=== PATIENT | female | born 1940 | race Caucasian/White ===

== ENCOUNTER → 2016-08-05 | Outpatient (CLI) | payer OTHER, BC ==
--- NOTE | 2016-08-05 16:06 | MR ---
MRI of the Brain (Without Contrast) at 1506 hours Clinical Indications: Confusion, R41.0. Comparison: None. Technique: T1-weighted images were acquired axially and sagittally from the foramen magnum to the ve rtex. Axial fast inversion recovery, fast T2-weighted, and diffusion-weighted axial images were obta ined without contrast. Findings: The ventricles, cisterns, and sulci are widened consistent with mild cerebral atrophy jose cially in bilateral parietal lobes. No hydrocephalus, midline shift, herniation, or epidural/subdural hematomas. No intracranial hemorrhage or masses. Diffusion-weighted sequence demonstrates no acute i nfarct. Cerebellar tonsils are in normal position. Pituitary gland is normal in size. Normal signal f low-void in the superior sagittal sinus, basilar artery, and bilateral internal carotid arteries marilee cating patency. Paranasal sinuses and mastoid air cells are clear. Cervical spondylosis on the sagitt al T1 series with moderate central canal stenosis at C3-C4 and C4-C5 secondary to degenerative disk d isease and degenerative spondylolisthesis. Impression: 1. Mild cerebral atrophy. 2. Cervical spondylosis resulting in moderate central canal stenosis at C3-C4 and C4-C5 with mild cor d compression. 3. No acute infarct, acute hemorrhage, hydrocephalus, or mass effect.
== END ==
LOC: FIMAGING 14:26
PROVIDERS: ATTEND Psychiatry & Neurology Neurology
DX: R41.0 Disorientation, unspecified (principal)

== ENCOUNTER → 2017-07-14 | Outpatient (CLI) | payer OTHER, BC | LOC: BMCIMAGING 15:02 | PROVIDERS: ATTEND Internal Medicine | DX: Z12.31 Encounter for screening mammogram for malignant neoplasm of breast (principal) ==

== ENCOUNTER → 2017-08-05 | Outpatient (CLI) | payer OTHER, BC | LOC: BMCIMAGING 10:06 | PROVIDERS: ATTEND Family Medicine | DX: S92.354A Nondisplaced fracture of fifth metatarsal bone, right foot, initial encounter for closed fracture (principal); M20.11 Hallux valgus (acquired), right foot; M19.071 Primary osteoarthritis, right ankle and foot ==

== ENCOUNTER 2017-08-12 09:01 | Observation (INO) | payer OTHER, BC ==
--- NOTE | 2017-08-12 09:12 | CPEKG ---
Heart Rate: 70 RR Interval: 857 P-R Interval: 136 QRSD Interval: 72 QT Interval: 412 QTC Interval: 445 P Dawson: 74 QRS Dawson: -2 T Wave Dawson: 16 EKG Severity - NORMAL ECG - EKG Impression: SINUS RHYTHM Electronically Signed By: Og Landrum 12-Aug-2017 14:14:20
--- NOTE | 2017-08-12 09:23 | EDPHY ---
H & P Stated Complaint: syncope x 2 this week Time Seen by Provider: 08/12/17 09:13 HPI/ROS: Chief Complaint: Syncope HPI: 76-year-old woman has had 2 episodes of syncope this week. The 1st 1 was on Tuesday when she was standing in the bathroom. She was caught by her lowered to the ground. EMS was called at that time but they refuse transport that she recovered. Patient was getting up this morning. She was sitting at the side of the bed getting ready to stand up went while seated she again had a syncopal episode. lowered her down to the bed. She has a history of a recent foot fracture after a fall a week ago. Has an orthopedic shoe in place. She is also complaining of some pain behind her right knee to her this morning but she states she currently does not have any pain. Did not have any chest pain or palpitations. No shortness of breath. No cough. No fevers or chills. ROS: 10 point Review of Systems is negative except as noted in the HPI. PMH: Dementia Social History: No smoking, no alcohol, no recreational drug use Family History: non-contributory Physical Exam: Gen: Awake, Alert, No Distress HEENT: Nose: no rhinorrhea Eyes: PERRLA, EOMI Mouth: Moist mucosa Neck: Supple, no JVD Chest: nontender, lungs clear to auscultation Heart: S1, S2 normal, no murmur Abd: Soft, non-tender, no guarding Back: no CVA tenderness, no midline tenderness Ext: no edema, no calf tenderness or swelling, right foot is bandaged and swollen consistent with her fracture Skin: no rash Neuro: CN II-XII intact, Sensation grossly intact, Strength 5/5 in bilateral upper and lower extremities - Personal History Current Tetanus/Diphtheria Vaccine: Yes Current Tetanus Diphtheria and Acellular Pertussis (TDAP): Yes - Medical/Surgical History Hx Asthma: No Hx Chronic Respiratory Disease: No Hx Diabetes: No Hx Cardiac Disease: No Hx Renal Disease: No Hx Cirrhosis: No Hx Alcoholism: No Hx HIV/AIDS: No Hx Splenectomy or Spleen Trauma: No Other PMH: Dementia - Social History Smoking Status: Never smoked Constitutional: Initial Vital Signs Temperature (C) 36.4 C 08/12/17 09:01 Heart Rate 71 08/12/17 09:01 Respiratory Rate 16 08/12/17 09:01 Blood Pressure 124/58 H 08/12/17 09:01 O2 Sat (%) 96 08/12/17 09:01 O2 Delivery Mode Room Air Allergies/Adverse Reactions: No Known Allergies Allergy (Unverified 08/12/17 09:08) Home Medications: Medication Instructions Recorded Ariheber 08/12/17 Medical Decision Making - Diagnostics EKG Interpretation: ECG time 9:10 a.m., sinus rhythm with a rate of 70, normal axis, normal intervals, no acute ST or T-wave changes. Impression: Normal ECG. ED Course/Re-evaluation: 76-year-old woman with 2 episodes of syncope in the last 3 days. ECG is normal. Age adjusted D-dimer is appropriate. She has not have any calf tenderness or swelling at this time. Will admit for further cardiac evaluation. - Data Points Laboratory Results: Laboratory Results 08/12/17 09:26 08/12/17 09:26 08/12/17 08/12/17 08/12/17 09:48 09:26 09:26 WBC RBC Hgb Hct MCV MCH MCHC RDW Plt Count MPV Neut % (Auto) Lymph % (Auto) Rich % (Auto) Eos % (Auto) Baso % (Auto) Nucleat RBC Rel Count Absolute Neuts (auto) Absolute Lymphs (auto) Absolute Monos (auto) Absolute Eos (auto) Absolute Basos (auto) Absolute Nucleated RBC Immature Gran % Immature Gran # D-Dimer 0.55 ug/mLFEU H ug/mLFEU (0.00-0.50) Sodium 141 mEq/L mEq/L (135-145) Potassium 4.8 mEq/L mEq/L (3.5-5.2) Chloride 100 mEq/L mEq/L (97-110) Carbon Dioxide 29 mEq/l mEq/l (22-31) Anion Gap 12 mEq/L mEq/L (8-16) BUN 13 mg/dL mg/dL (7-23) Creatinine 0.7 mg/dL mg/dL (0.6-1.0) Estimated GFR > 60 Glucose 121 mg/dL H mg/dL (70-100) Calcium 9.8 mg/dL mg/dL (8.5-10.4) Troponin I < 0.012 ng/mL ng/mL (0.000-0.034) Urine Color YELLOW Urine Appearance CLEAR Urine pH 6.0 (5.0-7.5) Ur Specific Jackson 1.021 (1.002-1.030) Urine Protein NEGATIVE (NEGATIVE) Urine Ketones TRACE H (NEGATIVE) Urine Blood 1+ H (NEGATIVE) Urine Nitrate NEGATIVE (NEGATIVE) Urine Bilirubin NEGATIVE (NEGATIVE) Urine Urobilinogen NEGATIVE EU EU (0.2-1.0) Ur Leukocyte Esterase NEGATIVE (NEGATIVE) Urine RBC 1-3 /hpf /hpf (0-3) Urine WBC 1-3 /hpf /hpf (0-3) Ur Epithelial Cells TRACE /lpf /lpf (NONE-1+) Urine Mucus TRACE /lpf /lpf (NONE-1+) Urine Glucose NEGATIVE (NEGATIVE) 08/12/17 09:26 WBC 11.23 10^3/uL H 10^3/uL (3.80-9.50) RBC 4.43 10^6/uL 10^6/uL (4.18-5.33) Hgb 14.2 g/dL g/dL (12.6-16.3) Hct 42.6 % % (38.0-47.0) MCV 96.2 fL fL (81.5-99.8) MCH 32.1 pg pg (27.9-34.1) MCHC 33.3 g/dL g/dL (32.4-36.7) RDW 13.6 % % (11.5-15.2) Plt Count 216 10^3/uL 10^3/uL (150-400) MPV 9.6 fL fL (8.7-11.7) Neut % (Auto) 82.4 % H % (39.3-74.2) Lymph % (Auto) 5.2 % L % (15.0-45.0) Rich % (Auto) 10.9 % % (4.5-13.0) Eos % (Auto) 0.1 % L % (0.6-7.6) Baso % (Auto) 0.2 % L % (0.3-1.7) Nucleat RBC Rel Count 0.0 % % (0.0-0.2) Absolute Neuts (auto) 9.27 10^3/uL H 10^3/uL (1.70-6.50) Absolute Lymphs (auto) 0.58 10^3/uL L 10^3/uL (1.00-3.00) Absolute Monos (auto) 1.22 10^3/uL H 10^3/uL (0.30-0.80) Absolute Eos (auto) 0.01 10^3/uL L 10^3/uL (0.03-0.40) Absolute Basos (auto) 0.02 10^3/uL 10^3/uL (0.02-0.10) Absolute Nucleated RBC 0.00 10^3/uL 10^3/uL (0-0.01) Immature Gran % 1.2 % H % (0.0-1.1) Immature Gran # 0.13 10^3/uL H 10^3/uL (0.00-0.10) D-Dimer Sodium Potassium Chloride Carbon Dioxide Anion Gap BUN Creatinine Estimated GFR Glucose Calcium Troponin I Urine Color Urine Appearance Urine pH Ur Specific Jackson Urine Protein Urine Ketones Urine Blood Urine Nitrate Urine Bilirubin Urine Urobilinogen Ur Leukocyte Esterase Urine RBC Urine WBC Ur Epithelial Cells Urine Mucus Urine Glucose Departure - Departure Disposition: [facility] Inpatient Acute Clinical Impression: Syncope Condition: Fair Referrals: Lorna Matt MD [Primary Care Provider] - As per Instructions
[2017-08-12 09:37] LABS: PLATELET COUNT 216 10^3/uL (150-400)
[2017-08-12] MEDS ORDERED: ACETAMINOPHEN 325 MG TAB PO PRN (10:45)
[2017-08-12] MEDS ORDERED: ONDANSETRON DISINTEGRATING 4 MG TAB PO PRN (10:45)
[2017-08-12] MEDS ORDERED: ONDANSETRON 4 MG/2 ML VIAL IVP PRN (10:45)
[2017-08-12] MEDS ORDERED: IBUPROFEN 200 MG PO PRN (14:01)
[2017-08-12] MEDS ORDERED: IBUPROFEN 200 MG TAB PO PRN (14:04)
[2017-08-12] MEDS: LR 1,000 ML IV SCH (14:35)
--- NOTE | 2017-08-12 15:21 | PDGENHP ---
History and Physical - Chief Complaint Acute syncope - History of Present Illness Primary care provider: Dr. Lorna Matt HPI: 76-year-old female presenting with acute syncope characterized as complete loss of consciousness from both a sitting position as well as a standing position, occurring twice over the past 3 days, without any associated trauma. The patient's provides the majority of the history, reporting that 3 days ago the patient was standing and heel which she described as lightheaded, and the patient's lowered her safely to the floor. He reports that the duration of the patient appearing to be unconscious was approximately 1-2 minutes, and the patient regained consciousness without any additional issues. She did not have any seizure-like activity or any bowel or bladder incontinence. On the day of this presentation, the patient sat up from bed and she began experiencing some associated lightheadedness, and her safely lowered her to the floor, experiencing the same duration of unresponsiveness. The patient's reports that she has otherwise been feeling well, has not complained of any palpitations, chest pain, shortness of breath. She reports that she has been taking her home medications with the exception of the morning of presentation. He reports that she has been eating and drinking well, but he does have to encourage her to drink fluids, so he suspects that she may not be drinking as much as she otherwise should be. Prior to the onset of the symptoms, the patient's does report 1 unwitnessed fall during June of 2017, which resulted in some posterior head trauma. He also reports that she experienced a mechanical fall a couple weeks ago when she tripped on [employer], resulting in a right 5th metatarsal fracture. She has subsequently been using her crutches and a boot, and has been nonweightbearing on that right lower extremity. If she requires anything for pain, she only takes ibuprofen. History Information - Allergies/Home Medication List Allergies/Adverse Reactions: No Known Allergies Allergy (Unverified 08/12/17 09:08) Home Medications: Calcium Carbonate [Oyster Shell Calcium 500 mg (*)] 500 mg PO DAILY 08/12/17 [ Last Taken Unknown] Cholecalciferol Vit D3 [Vitamin D3 (*)] 1,000 units PO DAILY 08/12/17 [Last Taken Unknown] Donepezil HCl [Aricept 5 MG (*)] 10 mg PO HS 08/12/17 [Last Taken 08/11/17] Ibuprofen [Motrin (*)] 200 mg PO DAILY PRN 08/12/17 [Last Taken Unknown] I have personally reviewed and updated: family history, medical history, social history, surgical history - Past Medical History Additional medical history: Dementia, osteoporosis - Surgical History Reports: no pertinent surgical hx - Family History Additional family history: No venous thromboembolism, no sudden cardiac - Social History Smoking Status: Never smoked Alcohol Use: None Drug Use: None Additional social history: Lives at home with , she is very ambulatory at baseline Review of Systems Review of Systems: ROS: 10pt was reviewed & negative except for what was stated in HPI & below Muscolosketal: Reports: other (Right foot pain) Neurological: Reports: other (Syncope, lightheadedness) Physical Exam Physical Exam: Temp Pulse Resp BP Pulse Ox 36.6 C 74 14 113/59 L 95 08/12/17 11:45 08/12/17 11:45 08/12/17 11:45 08/12/17 11:45 08/12/17 11:45 Constitutional: no apparent distress, appears nourished, not in pain Eyes: PERRL, anicteric sclera, EOMI Ears, Nose, Mouth, Throat: moist mucous membranes, hearing normal, ears appear normal, no oral mucosal ulcers Cardiovascular: systolic murmur (1/6 at the right sternal border), No irregularly irregular, No tachycardia, No edema Respiratory: no respiratory distress, no rales or rhonchi, clear to auscultation Gastrointestinal: normoactive bowel sounds, soft, non-tender abdomen, no palpable masses Skin: warm, normal color, no rashes or abrasions, no fluctuance, no induration, No mottled Neurologic: AAOx3, sensation intact bilaterally, CN II-XII Intact, No weakness, No facial droop Psychiatric: not anxious, encephalopathic, flat affect, poor memory, No agitated Lab Data & Imaging Review 08/12/17 09:26 08/12/17 09:26 WBC 11.23 10^3/uL (3.80-9.50) H 08/12/17 09:26 RBC 4.43 10^6/uL (4.18-5.33) 08/12/17 09:26 Hgb 14.2 g/dL (12.6-16.3) 08/12/17 09: Hct 42.6 % (38.0-47.0) 08/12/17: MCV 96.2 fL (81.5-99.8) 08/12/17 09: MCH 32.1 pg (27.9-34.1) 08/12/17: MCHC 33.3 g/dL (32.4-36.7) 08/12/17: RDW 13.6 % (11.5-15.2) 08/12/17: Plt Count 216 10^3/uL (150-400) 08/12/17: MPV 9.6 fL (8.7-11.7) 08/12/17: Neut % (Auto) 82.4 % (39.3-74.2) H 08/12/17: Lymph % (Auto) 5.2 % (15.0-45.0) L 08/12/17: Tate % (Auto) 10.9 % (4.5-13.0) 08/12/17: Eos % (Auto) 0.1 % (0.6-7.6) L 08/12/17: Baso % (Auto) 0.2 % (0.3-1.7) L 08/12/17: Nucleat RBC Rel Count 0.0 % (0.0-0.2) 08/12/17: Absolute Neuts (auto) 9.27 10^3/uL (1.70-6.50) H 08/12/17 09: Absolute Lymphs (auto) 0.58 10^3/uL (1.00-3.00) L 08/12/17: Absolute Monos (auto) 1.22 10^3/uL (0.30-0.80) H 08/12/17: Absolute Eos (auto) 0.01 10^3/uL (0.03-0.40) L 08/12/17: Absolute Basos (auto) 0.02 10^3/uL (0.02-0.10) 08/12/17: Absolute Nucleated RBC 0.00 10^3/uL (0-0.01) 08/12/17 09:26 Immature Gran % 1.2 % (0.0-1.1) H 08/12/17 09:26 Immature Gran # 0.13 10^3/uL (0.00-0.10) H 08/12/17 09:26 D-Dimer 0.55 ug/mLFEU (0.00-0.50) H 08/12/17 09:26 Sodium 141 mEq/L (135-145) 08/12/17 09:26 Potassium 4.8 mEq/L (3.5-5.2) 08/12/17 09:26 Chloride 100 mEq/L (97-110) 08/12/17 09:26 Carbon Dioxide 29 mEq/l (22-31) 08/12/17 09:26 Anion Gap 12 mEq/L (8-16) 08/12/17 09:26 BUN 13 mg/dL (7-23) 08/12/17 09:26 Creatinine 0.7 mg/dL (0.6-1.0) 08/12/17 09:26 Estimated GFR > 60 08/12/17 09:26 Glucose 121 mg/dL (70-100) H 08/12/17 09:26 Calcium 9.8 mg/dL (8.5-10.4) 08/12/17 09:26 Troponin I < 0.012 ng/mL (0.000-0.034) 08/12/17 09:26 TSH 2.250 uIU/mL (0.465-4.680) 08/12/17 09:26 Urine Color YELLOW 08/12/17 09:48 Urine Appearance CLEAR 08/12/17 09:48 Urine pH 6.0 (5.0-7.5) 08/12/17 09:48 Ur Specific Newton 1.021 (1.002-1.030) 08/12/17 09:48 Urine Protein NEGATIVE (NEGATIVE) 08/12/17 09:48 Urine Ketones TRACE (NEGATIVE) H 08/12/17 09:48 Urine Blood 1+ (NEGATIVE) H 08/12/17 09:48 Urine Nitrate NEGATIVE (NEGATIVE) 08/12/17 09:48 Urine Bilirubin NEGATIVE (NEGATIVE) 08/12/17 09:48 Urine Urobilinogen NEGATIVE EU (0.2-1.0) 08/12/17 09:48 Ur Leukocyte Esterase NEGATIVE (NEGATIVE) 08/12/17 09:48 Urine RBC 1-3 /hpf (0-3) 08/12/17 09:48 Urine WBC 1-3 /hpf (0-3) 08/12/17 09:48 Ur Epithelial Cells TRACE /lpf (NONE-1+) 08/12/17 09:48 Urine Mucus TRACE /lpf (NONE-1+) 08/12/17 09:48 Urine Glucose NEGATIVE (NEGATIVE) 08/12/17 09:48 Visualized and Interpreted EKG results: Yes EKG Interpretation: Positive for: other (Normal sinus mechanism) Assessment & Plan Assessment: 76-year-old female presenting with acute syncope in the setting of recent traumatic fall Plan: 1. Syncope. Acute, new problem this provider, further workup indicated. Patient with 2 witnessed episodes of loss of consciousness, most likely secondary to orthostatic hypotension, as the patient had positive orthostatics on our initial evaluation -given her history of recent mechanical fall, as well as unwitnessed fall 1 month prior, would recommend noncontrast head CT to rule out chronic or subacute subdural hematoma as a contributing cause -will give IV fluids overnight, repeat orthostatics in a.m. -get echocardiogram to rule out valvulopathy, get carotid ultrasounds to rule out carotid stenosis as contributing causes -get respiratory viral panel to rule out infection -given her leukocytosis, I do suspect the patient has an underlying acute issue causing her syncope, and we will further investigate by cycling her cardiac enzymes and monitoring her on telemetry -D-dimer is negative for age adjustment, will not pursue further pulmonary embolism workup -outside records reviewed including 08/05/2016 brain MRI demonstrating atrophy, mild cord compression at C3-C5, do not believe that the patient warrants additional MRI imaging at this time Diet. Regular Prophylaxis. Hydration, Lovenox for Code. Full per patient, is MD ORTIZ Disposition. Anticipated discharge 08/13, pending further evaluation as outlined above. Discussed with Teresa Powell, hospitalist provider, she has signed out the patient to me for evaluation.
--- NOTE | 2017-08-12 16:00 | ECHO ---
[email or web address] [address] Main: [phone] Fax: Transthoracic Echocardiogram Name: ISI REYNOSO MR#: [id number] Study Date: 08/12/2017 Study Time: 02:37 PM Date of : 1940 Age: 76 year(s) Height: 160 cm (63 in.) Weight: 50.8 kg (112 lb.) BSA: 1.51 m2 Gender: Female Examination: Echo Indication: Cardiac: syncope Image Quality: Contrast: Requested by: Apollo Thayer BP: 84 mmHg/53 mmHg Heart Rate: Rhythm: Indication: Cardiac: syncope Procedure Staff Relief Salesperson: Jermaine Vega RDCS Reading Physician: Placido Casillas Requesting Provider: Conclusions: Normal size left ventricle. Normal global systolic LV function. EF is 63 %. Diastolic dysfunction is present. . Normal RV function. The left atrium is normal in size. The right atrium is normal in size. The pulmonary artery pressure is mildly increased. No pericardial effusion. Measurements: Chambers Valvular Assessment AV/MV Valvular Assessment TV/PV Normal Normal Normal Name Value Range Name Value Range Name Value Range Ao Geni (MM): 2.6 cm (2.2 cm-3.7 AV Vmax: 1.07 m/s (1 m/s-1.7 TR Vmax: 2.70 mm/s ( - ) cm) m/s) TR PGmax: 29 mmHg ( - ) IVSd (2D): 0.7 cm (0.6 cm-1.1 AV maxP mmHg ( - ) syst. PAP: 34 mmHg ( - ) cm) LVOT Vmax: 0.78 m/s (0.7 m/s-1.1 LVDd (2D): 3.9 cm (3.9 cm-5.3 m/s) cm) MV E Vmax: 0.64 m/s ( - ) LVDs (2D): 2.6 cm (2.1 cm-4 MV A Vmax: 0.71 m/s ( - ) cm) MV E/A: 0.90 ( - ) LVPWd (2D): 0.7 cm ( - ) LVEF (2D): 63 (>=54 %) Continued Measurements: Valvular Assessment AV/MV Valvular Assessment TV/PV Name Value Name Value Patient: ISI REYNOSO Study Date: 08/12/2017 Page 1 of 2 02:37 PM MV E' Septal: 0.06 m/s CVP (est.): 5 mmHg MV E/E' Septal: 10.80 MV E/E' Lateral: 6.70 Findings: Left Ventricle: Normal size left ventricle. No LV hypertrophy. Normal global systolic LV function. EF is 63 %. No regional wall motion abnormality. Diastolic dysfunction is present. . Right Ventricle: Normal size right ventricle. Normal RV function. Left Atrium: The left atrium is normal in size. Normal appearing atrial septum. Right Atrium: The right atrium is normal in size. Mitral Valve: The mitral valve is normal in appearance and function. Trivial mitral valve regurgitation. Aortic Valve: The aortic valve is tri-leaflet and functions normally. There is no aortic valve regurgitation. No aortic valve stenosis is present. Tricuspid Valve: The tricuspid valve is normal in appearance and function. The pulmonary artery pressure is mildly increased. Mild tricuspid regurgitation is present. Pulmonic Valve: The pulmonic valve is normal in appearance and function. Aorta: The aorta is normal. Normal size aortic root measuring 2.6 cm. Pericardium: No pericardial effusion. (No Signature Object) Patient: ISI REYNOSO Study Date: 08/12/2017 Page 2 of 2 02:37 PM [id number]
[2017-08-12] MEDS ORDERED: DONEPEZIL HCL 10 MG PO SCH (21:00)
[2017-08-12] MEDS ORDERED: DONEPEZIL HCL 5 MG TAB PO SCH (21:00)
[2017-08-13] MEDS: LR 1,000 ML IV SCH (00:29)
[2017-08-13 03:49] LABS: PLATELET COUNT 195 10^3/uL (150-400)
[2017-08-13 07:47] VITALS: RESP 12
[2017-08-13] MEDS ORDERED: ENOXAPARIN 40 MG/0.4 ML SYR SC SCH (09:00)
[2017-08-13] MEDS ORDERED: CHOLECALCIFEROL VIT D3 1,000 UNITS TAB PO SCH (09:00)
[2017-08-13] MEDS ORDERED: NON-FORMULARY NEW DRUG (Cholecalciferol Vit D3 [Vitamin D3 (*)] 1,000 UNITS) PO SCH (09:00)
[2017-08-13] MEDS ORDERED: CALCIUM CARBONATE 500 MG TAB PO SCH (09:00)
[2017-08-13 11:54] VITALS: BP 103/51; PULSE 75; TEMP 98.2; O2SAT 95
--- NOTE | 2017-08-13 15:52 | PDDCSUM ---
Discharge Summary Discharge Summary: DISCHARGE SUMMARY FOLLOW-UP ITEMS: Outpatient mini-mental status exam Blood cultures were pending at time of discharge, to be followed up by primary care provider office DATE OF ADMISSION: 08/12/2017 DATE OF DISCHARGE: 08/13/2017 DISCHARGE DIAGNOSES: 1. Acute syncope 2. Right 5th metatarsal fracture present on admission 3. Suspected viral syndrome 4. Orthostasis 5. Chronic encephalopathy secondary to dementia CONSULTATIONS: None PROCEDURES / IMAGING: Head CT demonstrating no intracranial hemorrhage Right knee x-ray demonstrating no fracture Echocardiogram demonstrating ejection fraction of 63%, diastolic dysfunction, no significant valvular abnormalities Carotid ultrasounds demonstrating no stenosis CHIEF COMPLAINT: Acute syncope SUBJECTIVE: Patient is feeling well at time discharge she has not had a recurrence of symptoms PHYSICAL EXAM ON DISCHARGE: Systolic blood pressure 126, negative orthostatics on repeat, heart rate 72, temp 37.2 degrees, satting 94% on room air, alert awake oriented x1 to person, flat affect, no apparent distress LABS ON DISCHARGE: Troponin negative x2, D-dimer negative when age adjusted, urinalysis positive for ketones, liver panel unremarkable, creatinine 0.7, white blood count 9800, hemoglobin 12 HOSPITAL COURSE BY PROBLEM: The patient presented with acute syncope characterized as 2 episodes of transient loss of consciousness without any traumatic falls. Believe that the most likely cause of these episodes is orthostasis, the patient had positive orthostatics on presentation. I suspect the reason the patient's orthostatic is that she is experiencing viral syndrome, respiratory viral panel was checked to ensure that she does not have the flu. The reason I suspect that she is a viral syndrome is that she has marginal leukocytosis on presentation with white blood cell count around 11,000, she has been experiencing several days of lethargy and nonproductive cough, she has orthostatic hypotension which responded nicely to IV fluids. The patient received supportive care and her syncope was evaluated with echocardiogram, carotid ultrasounds, telemetry monitoring, head CT. None of these tests revealed any other etiology of her syncope and the patient's orthostatics normalized with IV fluids and she was feeling well prior to discharge home. I encouraged her to encourage her to drink at least 2 L of fluid per day, which he reports is a challenge for this patient given her underlying dementia. The patient did experience an unwitnessed fall in June, and she had some head trauma at that time, and head CT demonstrates no intracranial hemorrhage. She also recently had a mechanical fall resulting in 5th metatarsal fracture as well as some right knee pain. We x-rayed her knee, no fracture was identified. The patient also has some chronic hip pain, and I recommended that she follow up with orthopedist to address her metatarsal fracture, for which she is currently wearing a boot, as well as her hip pain. DISCHARGE MEDICATIONS: Please see official discharge medication reconciliation sheet in chart , continue home medications without any changes. DISCHARGE INSTRUCTIONS: Please follow up with primary care provider early next week, have her blood cultures followed up, get a mini-mental status exam
--- NOTE | 2017-08-14 15:29 | ASDISCHSUM ---
Discharge Information Plan Status:Home with No Needs Medically Cleared to Leave:08/12/2017 Discharge Date:08/13/2017 03:15 PM CM D/C Disposition:Home, Routine, Self-Care ADT D/C Disposition:Home, Routine, Self-Care Projected Discharge Date:08/13/2017 12:00 AM Transportation at D/C:Family Discharge Delay Reason: Follow-Up Date:08/13/2017 12:00 AM Discharge Slot: Final Diagnosis:Acute syncope, R 5th metatarsal fx, Orthostasus, Encephalopathy Placement Information Patient Contact Information Contact Name:PATY Relationship: Address:[address] [place] Work Phone: [facility]:[place] Alternate Phone: [facility]/Zip Code:[place] [address] Email: Financial Information Financial Class: Primary Plan Desc:MEDICARE OUTPATIENT Primary Plan Number:[id number] Secondary Plan Desc:[facility] Secondary Plan Number:[id number] Assessment Information Case Management Discharge Plan Note Case Management Discharge Discharge Order Complete? Answers: Yes Patient to Obtain Answers: via Family Medications Transportation Arranged Answers: Family/Friends Transport will Pick (Date 08/13/2017 12:00 AM & Time) Family Notified Answers: Yes Notes: Family to transport armin e Discharge Comments Notes: Patient discharged home with . Patient had syncopal episodes at home with metatarcal fx and hip pain. Patient has dementia and cares for her at home. It doesn't look like PT was able to eval before patient returned home. OT recommending HC 7 24hr supervision vs SNF. Date Signed: 08/14/2017 03:28 PM Electronically Signed By:Hellen Inman LCSW Intervention Information
--- NOTE | 2017-08-14 16:17 | PDIAF ---
- Diagnosis Diagnosis: Syncope, Dementia, 5th Metatarsal Fracture Code Status: Full Code - Medication Management Discharge Medications: Medications to Continue on Transfer Calcium Carbonate [Oyster Shell Calcium 500 mg (*)] 500 mg PO DAILY 08/12/17 [ Last Taken Unknown] Cholecalciferol Vit D3 [Vitamin D3 (*)] 1,000 units PO DAILY 08/12/17 [Last Taken Unknown] Donepezil HCl [Aricept 5 MG (*)] 10 mg PO HS 08/12/17 [Last Taken 08/11/17] Ibuprofen [Motrin (*)] 200 mg PO DAILY PRN 08/12/17 [Last Taken Unknown] Residential Antibiotics: NA Discharge Medications: Refer to the Discharge Home Medication list for PRN reason. PICC Care - Routine: N/A - Orders Services needed: Home Care, Physical Therapy, Occupational Therapy Home Care Face to Face: I certify that this patient was under my care and that I had the required [id number] encounter meeting the encounter requirements on the discharge day. My findings support the fact that the patient is homebound as defined in Home Care Face to Face Continued: CMS Chapter 7 Medicare Benefits Manual 30.1.1 , The condition of the patient is such that there exists a normal inability to leave home and consequently, leaving home would require a considerable and taxing effort. Isolation Type: None Oxygen: NA Diet Recommendation: no restrictions on diet Rojas: Not applicable - Follow Up Care Current Providers and Referrals: Lorna Matt MD [Primary Care Provider] - 3-5 days
== END 2017-08-13 15:15 | disposition home or self-care (01) ==
LOC: EDUNIT# → F2W 11:39
PROVIDERS: ADMIT Internal Medicine; ATTEND Internal Medicine
DX: R55 Syncope and collapse (principal); R42 Dizziness and giddiness; F03.90 Unspecified dementia, unspecified severity, without behavioral disturbance, psychotic disturbance, mood disturbance, and anxiety; S92.351A Displaced fracture of fifth metatarsal bone, right foot, initial encounter for closed fracture; G93.40 Encephalopathy, unspecified
CPT/HCPCS: 70450; 73562; 93005; 93306; 93880; 97116; 97161; 97166; 99285; G0378; G8978; G8979; G8987; G8988; J1650

== ENCOUNTER → 2017-08-31 | Outpatient (CLI) | payer OTHER, BC | LOC: BMCIMAGING 13:56 | PROVIDERS: ATTEND Podiatrist Foot & Ankle Surgery | DX: S92.351D Displaced fracture of fifth metatarsal bone, right foot, subsequent encounter for fracture with routine healing (principal); M20.11 Hallux valgus (acquired), right foot ==

== ENCOUNTER → 2017-09-21 | Outpatient (CLI) | payer OTHER, BC | LOC: BMCIMAGING 13:31 | PROVIDERS: ATTEND Podiatrist Foot & Ankle Surgery | DX: S92.354D Nondisplaced fracture of fifth metatarsal bone, right foot, subsequent encounter for fracture with routine healing (principal); M20.11 Hallux valgus (acquired), right foot; M19.071 Primary osteoarthritis, right ankle and foot ==